=== PATIENT | male | born 1960 | race Caucasian/White ===

== ENCOUNTER → 2018-06-30 | Day surgery (SDC) | payer BC ==
[~2018-06-30] MED LIST: Lactated Ringers 1,000 ML IV SCH; Propofol 200 MG/20 ML SDV IV ONE
[2018-06-30 13:19] VITALS: BP 146/95
--- NOTE | 2018-07-03 09:46 | OR ---
DATE OF OPERATION: 06/30/2018 PREOPERATIVE DIAGNOSIS: HISTORY OF POLYPS. POSTOPERATIVE DIAGNOSIS: HISTORY OF POLYPS. SURGEON: Didier Fishman MD PROCEDURE: DIAGNOSTIC COLONOSCOPY. ANESTHESIA: MAC via DELIVERY COORDINATOR. COMPLICATIONS: None. SPECIMEN: None. FINDINGS: Normal full-length colonoscopy. RECOMMENDATIONS: Followup colonoscopy in 10 years. INDICATIONS: The patient is a 57-year-old with a history of prior polyp removal, is overdue for a followup scope in that regard. DESCRIPTION OF PROCEDURE: The patient was prepped and draped, placed in the left lateral decubitus position. A lubricated Olympus colonoscope was inserted and easily advanced to the cecum. We were able to get right up along the ileocecal valve and it was difficult to get actually deep into the cecal pouch itself. We were able to visualize into the pouch, but could not advance the scope there. Upon withdrawal throughout the entire length of the colon, I could find no signs of any polyps, mass, ulceration, or bleeding sites. No vascular abnormalities or signs of colitis. There were no signs of diverticula. The rectal vault was benign. Retroflexion of the scope in the rectum showed no anal lesions. Air was suctioned, scope removed without complication. DORIS/PERLA /[id number]
== END ==
LOC: CC.SDS 11:28
PROVIDERS: ATTEND Family Medicine
DX: Z12.11 Encounter for screening for malignant neoplasm of colon (principal); Z86.010 Personal history of colon polyps; N40.0 Benign prostatic hyperplasia without lower urinary tract symptoms; G47.30 Sleep apnea, unspecified; R53.83 Other fatigue
CPT/HCPCS: 45378; J2704; J7120